=== PATIENT | female | born 1965 | race Caucasian/White ===

== ENCOUNTER 2018-10-22 11:23 | Emergency (ER) | payer MEDICAID, OTHER ==
[~2018-10-22] VITALS: Ht 165.1 cm; Wt 130.5 kg
[2018-10-22 11:36] VITALS: BP 118/82
== END 2018-10-22 12:26 | disposition home or self-care (01) ==
LOC: ED 12:20
DX: G89.11 Acute pain due to trauma (principal); K14.6 Glossodynia; I10 Essential (primary) hypertension; E11.9 Type 2 diabetes mellitus without complications; X58.XXXA Exposure to other specified factors, initial encounter; Y93.89 Activity, other specified; Y92.89 Other specified places as the place of occurrence of the external cause; Y99.8 Other external cause status
CPT/HCPCS: 99283